=== PATIENT | female | born 1995 ===

== ENCOUNTER 2020-12-13 07:00 | Inpatient (IN) | payer BC, OTHER ==
[2020-12-13 08:32] VITALS: BMI 23.1
[2020-12-13 09:09] LABS: BASO % 0.8 % (0-2.0); EOS % 0.4 % (0-4.5); HEMATOCRIT 35.1 % (32.4-45.2); HEMOGLOBIN 12.2 GM/dL (10.7-15.3); LYMPH % 12.8 % (8-40); MCH 33.4 pg (25.7-33.7); MCHC 34.8 g/dl (32.0-36.0); MEAN CELL VOLUME 95.7 fl (80-96); MEAN PLT VOLUME 10.3 fl (7.5-11.1); PLATELET COUNT 128 K/MM3 (134-434); RBC 3.67 M/mm3 (3.60-5.2); RDW 13.3 % (11.6-15.6); WHITE BLOOD COUNT 11.2 K/mm3 (4.0-10.0)
[2020-12-13 09:12] LABS: INR 0.93 (0.83-1.09); PROTHROMBIN TIME (PATIENT) 11.3 SEC (9.7-13.0)
[2020-12-13 09:14] LABS: ACTIVATED PTT 26.3 SECONDS (25.2-36.5)
[2020-12-13 09:26] LABS: BLOOD UREA NITROGEN 8.5 mg/dL (7-18); CALCIUM 8.3 mg/dL (8.5-10.1)
[2020-12-13 09:29] LABS: CREATININE 0.6 mg/dL (0.55-1.3)
[2020-12-13] MEDS ORDERED: PROMETHAZINE HCL 25 MG/1 ML VIAL IVPB ONE (09:39)
[2020-12-13] MEDS ORDERED: BUTORPHANOL TARTRATE 1 MG/ML VIAL IVPUSH ONE (09:39)
[2020-12-13] MEDS ORDERED: DEXTROSE 5%-LACTATED RINGERS 1,000 ML IV SCH (09:45)
[2020-12-13] MEDS ORDERED: ELECTROLYTE-148 SOLN 1,000 ML IV SCH ×2 (12:00→12:15)
[2020-12-13] MEDS ORDERED: OXYTOCIN 30 UNITS in 0.9% NS 30 UNIT/500 ML INFUS.BAG IVPB SCH ×2 (12:00→12:15)
[2020-12-13] MEDS ORDERED: FENTANYL/BUPIVACAINE/NS/PF - PCEA - 50 ML DISP.SYRIN EP ONE (12:02)
[2020-12-13] MEDS ORDERED: PCA PUMP NR ONE (12:02)
[2020-12-13] MEDS ORDERED: NALOXONE HCL 0.4 MG/ML VIAL IVPUSH PRN (12:50)
[2020-12-13] MEDS ORDERED: OXYTOCIN 30 UNITS in 0.9% NS 30 UNIT/500 ML INFUS.BAG IVPB ONE (12:56)
[2020-12-13] MEDS ORDERED: FENTANYL/BUPIVACAINE/NS/PF - PCEA - 50 ML DISP.SYRIN EP SCH (13:00)
[2020-12-13] MEDS ORDERED: LIDOCAINE HCL 1% PRESERVATIVE FREE - 30ML VIAL ONE (14:58)
[2020-12-13] MEDS ORDERED: OXYTOCIN 20 UNITS in 0.9% NS 20 UNIT/1,000 ML INFUS.BAG IV ONE (14:58)
[2020-12-13] MEDS ORDERED: BISACODYL 10 MG SUPP.RECT RC PRN (15:54)
[2020-12-13] MEDS ORDERED: METHYLERGONOVINE MALEATE 0.2 MG/1 ML AMP IM PRN (15:54)
[2020-12-13] MEDS ORDERED: OXYTOCIN 20 UNITS in 0.9% NS 20 UNIT/1,000 ML INFUS.BAG IV SCH (16:00)
[2020-12-13] MEDS: IBUPROFEN 600 MG TABLET (FP) PO PRN (17:58)
[2020-12-13] MEDS: ACETAMINOPHEN 325 MG TABLET (FP) PO PRN (17:59)
[2020-12-13] MEDS: FERROUS SO4 325 MG TABLET (FP) PO SCH (21:52)
[2020-12-13] MEDS: BENZOCAINE 20% 57 GM BOTTLE TP PRN (21:53)
[2020-12-13] MEDS: BENZOCAINE 28 GM HEMORRHOIDAL OINTMENT TP PRN (21:53)
[2020-12-13] MEDS: WITCH HAZEL 50% (TUCKS) 40 PAD/JAR PAD TP PRN (21:54)
[2020-12-14] MEDS: IBUPROFEN 600 MG TABLET (FP) PO PRN (07:47)
[2020-12-14] MEDS: ACETAMINOPHEN 325 MG TABLET (FP) PO PRN ×2 (07:48→18:35)
[2020-12-14 08:21] LABS: BASO % 0.5 % (0-2.0); EOS % 1.5 % (0-4.5); HEMOGLOBIN 12.1 GM/dL (10.7-15.3); LYMPH % 16.6 % (8-40); MCH 33.2 pg (25.7-33.7); MCHC 34.5 g/dl (32.0-36.0); MEAN CELL VOLUME 96.4 fl (80-96); MEAN PLT VOLUME 10.6 fl (7.5-11.1); MONO % 5.7 % (3.8-10.2); NEUT % 75.7 % (42.8-82.8); PLATELET COUNT 131 K/MM3 (134-434); RBC 3.63 M/mm3 (3.60-5.2); RDW 13.5 % (11.6-15.6); WHITE BLOOD COUNT 15.4 K/mm3 (4.0-10.0)
[2020-12-14] MEDS: PRENATAL VITAMINS W/ FOLIC ACID TABLET (FP) PO SCH (09:04)
[2020-12-14] MEDS: FERROUS SO4 325 MG TABLET (FP) PO SCH ×2 (09:04→22:20)
[2020-12-14] MEDS ORDERED: SENNOSIDES/DOCUSATE COMBO (SENNA PLUS) TABLET (UD) PO PRN (22:00)
[2020-12-15] MEDS: BENZOCAINE 28 GM HEMORRHOIDAL OINTMENT TP PRN (07:53)
[2020-12-15] MEDS: IBUPROFEN 600 MG TABLET (FP) PO PRN (07:54)
[2020-12-15] MEDS: WITCH HAZEL 50% (TUCKS) 40 PAD/JAR PAD TP PRN (07:54)
[2020-12-15] MEDS: ACETAMINOPHEN 325 MG TABLET (FP) PO PRN (07:55)
[2020-12-15] MEDS: BENZOCAINE 20% 57 GM BOTTLE TP PRN (07:56)
[2020-12-15 08:57] VITALS: BP 110/78; PULSE 94; TEMP 98.4
[2020-12-15] MEDS: FERROUS SO4 325 MG TABLET (FP) PO SCH (10:49)
[2020-12-15] MEDS: PRENATAL VITAMINS W/ FOLIC ACID TABLET (FP) PO SCH (10:49)
== END 2020-12-15 13:50 | disposition home or self-care (01) | DRG 807 ==
LOC: JERBED 07:00 → JLDR 07:31 → J3W 17:55
PROVIDERS: ADMIT Obstetrics & Gynecology; ATTEND Obstetrics & Gynecology
PROC: 10E0XZZ Delivery of Products of Conception, External Approach (ICD-10-PCS; principal; 2020-12-13)
DX: O60.23X0 Term delivery with preterm labor, third trimester, not applicable or unspecified (principal); Z37.0 Single live birth; Z3A.38 38 weeks gestation of pregnancy; D57.3 Sickle-cell trait
CPT/HCPCS: 36415; 59409; 80048; 85025; 85461; 85610; 85730; 86780; 86850; 86900; 86901; 86999; C9803; U0003; U0005